=== PATIENT | female | born 1940 | race Caucasian/White ===

== ENCOUNTER 2021-10-19 12:37 | Day surgery (SDC) | payer MEDICARE, SELFPAY ==
--- NOTE | 2021-10-19 07:24 | W.ANESPRE ---
General Info Date of Service Date Performed: 10/19/21 Height: 5 ft 5 in Weight: 72.8 kg Body Mass Index (BMI): 26.6 Surgical Procedure: Operation Date: 10/19/21 16:40 Proposed Procedure Side Surgeon p Cataract Extraction with IOL Implant Right Colby Kumar MD Meds Allergies and Home Medications Allergies Allergy/AdvReac Type Severity Reaction Status Date / Time iodine Allergy Verified 10/19/21 13:10 peanut Allergy Skin Rash Verified 10/19/21 13:10 peanut oil Allergy Skin Rash Verified 10/19/21 13:10 codeine AdvReac Verified 10/19/21 13:10 simvastatin [From Zocor] AdvReac Verified 10/19/21 13:10 Home Medication Medication Instructions Recorded aspirin 81 mg tablet,delayed 81 mg PO DAILY 10/01/21 release budesonide-formoterol HFA 160 2 puff INHALATION DAILY 10/01/21 mcg-4.5 mcg/actuation aerosol inhaler (Symbicort) fluticasone propionate 50 2 spray INTRANASAL DAILY 10/01/21 mcg/actuation nasal spray,suspension gabapentin 300 mg capsule 300 mg PO TID 10/01/21 lorazepam 1 mg tablet 1 mg PO BID PRN 10/01/21 naproxen 220 mg-diphenhydramine 25 1 tab PO HS PRN 10/01/21 mg tablet (Aleve PM) risperidone 1 mg tablet 1 mg PO HS 10/01/21 vitamin B12 0.5 mg-folic acid 1 mg tab PO 10/01/21 tablet Current Visit Medications: Current Medications Generic Name Dose Route Start Last Admin Trade Name Freq PRN Reason Stop Dose Admin Acetaminophen 1,000 mg 10/19/21 06:00 Acetaminophen 500 Mg Tab PO Q4H PRN PRN Miscellaneous Medication 0 ml 10/19/21 06:00 Prednisolone 1%, Moxifloxacin 0.5%, Nepafenac 0.1% 5ml Btl OD DIRECTED [facility] Miscellaneous Medication 0 ml 10/19/21 06:00 Tropicam./Phenyleph. (1/2.5%) 5 Ml Btl OD DIRECTED [facility] Tetracaine HCl 0 ml 10/19/21 06:00 Tetracaine 0.5% 4 Ml Btl OD DIRECTED [facility] Medical History Medical History Bone necrosis Constipation HLD (hyperlipidemia) Malignant neoplasm of uterus Mixed hyperlipidemia Neuropathy Osteoarthritis Pain of left hip joint Postmenopausal bleeding Schizophrenia Surgical History Surgical History (Updated 10/19/21 @ 13:03 by Chris Jones) History of hip replacement Hx of dilation and curettage Hx of hysterectomy Vital Signs and Lab Results Vital Signs Most Recent Vital Signs in EMR: Temp Pulse Resp BP Pulse Ox 37.2 C 92 H 16 136/71 96 10/19/21 12:48 10/19/21 12:48 10/19/21 12:48 10/19/21 12:48 10/19/21 12:48 Lab Results Blood Type / Crossmatch: No Data to Display Complete Blood Count: No Data to Display Complete Metabolic Panel: No Data to Display Liver Function Panel: No Data to Display Coagulation Panel: No Data to Display Cardiac Panel: No Data to Display Arterial Blood Gas: No Data to Display Venous Blood Gas: No Data to Display Pancreas Panel: No Data to Display Thyroid Panel: No Data to Display Infectious Disease: No Data to Display Blood Cultures: No Data to Display Toxicology Panel: No Data to Display Anesthesia Assessment and Plan Anesthesia History Personal History: No History of Anesthesia Complications Family History: No Family History of Anesthesia Complications Exercise Tolerance Exercise Tolerance: Metabolic Equivalents>4 Pertinent Negatives Pertinent Negatives: No Symptoms of GERD, No Major Pulmonary Symptoms or Complaints, No History of CVA/TIA and Other (2 previous heart attacks, but no symptoms) Cardiac & Pulmonary Exam Cardiac Exam: Normal S1/S2 Heart Sounds Pulmonary Exam: Clear Bilateral Breath Sounds Implantable Cardiac Device Does patient have a Pacemaker or an ICD?: No Airway Exam Known Difficult Airway: No Mallampati Class: 3 Mouth Opening: Normal (> 3cm) Thyromental Distance: Greater than 3 cm Neck Range of Motion: Full ROM Neck Circumference: Normal Teeth Condition: Normal Dentition and Other (Missing front left molar) ASA Classification ASA Score: ASA 3 Emergency Case?: No NPO Status NPO Status: NPO Clears >2 hours, Solids >8 hours Anesthesia Plan Resuscitation Status: Full Code Anesthesia Technique: MAC Anesthesia Airway Planned: Natural Airway Monitors Used: Standard Monitors Preoperative Comments:: 81 yo female for cataract removal. Sig PMHx: neuropathy, schizophrenia, asthma.
[2021-10-19 12:48] VITALS: BP 136/71; PULSE 92; RESP 16; TEMP 37.2; O2SAT 96
[2021-10-19] MEDS: Tropicam./Phenyleph. (1/2.5%) 5 ML BTL OD ×3 (13:23→13:33)
[2021-10-19 13:33] VITALS: BMI 26.6
[2021-10-19] MEDS: Tetracaine 0.5% 4 ML BTL OD (13:59)
[2021-10-19] MEDS: Duovisc Viscoelastic System EACH 1 EACH ×2 (14:00→14:18)
[2021-10-19] MEDS: Balanced Salt Soln.-PLUS 500 ML BAG (14:00)
[2021-10-19] MEDS: Lidocaine 2% Jelly 6 ML SYR (14:03)
[2021-10-19] MEDS: Povidone-Iodine Ophth 30 ML BTL (14:05)
[2021-10-19] MEDS: Trypan Blue 0.06% 0.5 ML SYR (14:07)
[2021-10-19 14:48] VITALS: BP 113/74; PULSE 74; RESP 16; TEMP 36.9; O2SAT 96
--- NOTE | 2021-10-19 14:53 | W.ANESPOSTOP ---
Postoperative Evaluation Date, Time and Location Date Performed: 10/19/21 Time Performed: 14:53 Patient Location: Day Surgery Unit Vital Signs Most Recent Imported Vital Signs: Most Recent Vital Signs Temp Pulse Resp BP Pulse Ox 36.9 C 74 16 113/74 96 10/19/21 14:48 10/19/21 14:48 10/19/21 14:48 10/19/21 14:48 10/19/21 14:48 Pain Score Most Recent Pain Score: Most Recent Pain Score Pain Level 0 10/19/21 14:48 Assessment Mental Status: Awake (Alert & Oriented to Patient Baseline) Airway and Respiratory Function: Patent airway with normal (patient baseline) respiratory exam Cardiovascular Function: Hemodynamically Stable Hydration Status: Adequately Hydrated Nausea & Vomiting: No Nausea or Vomiting Pain: Pt. Denies Any Pain Peripheral Nerve Block: Patient did not receive a nerve block
--- NOTE | 2021-10-19 15:00 | W.PM.DSUDISC ---
Discharge Plan Disposition Patient Disposition: HOME Condition: Good Discharge Details Attending Provider: Colby Kumar Primary Care Provider: Bharat Kwok [place] Meds and New Rx's Prescriptions: No Action aspirin [Aspir-81] 81 mg Tablet,Delayed Release (Dr/Ec) 81 mg PO DAILY 0RF gabapentin 300 mg Capsule 300 mg PO TID 0RF lorazepam 1 mg Tablet 1 mg PO BID PRN0RF fluticasone propionate 50 mcg/actuation [place],Suspension 2 spray INTRANASAL DAILY 0RF risperidone 1 mg Tablet 1 mg PO HS 0RF vitamin C70-qfnnq acid 0.5-1 mg Tablet 1 tab PO UNKNOWN 0RF budesonide-formoterol [Symbicort] 160-4.5 mcg/actuation Hfa Aerosol Inhaler 2 puff INHALATION DAILY 0RF Aleve PM 220-25 mg Tablet 1 tab PO HS PRN0RF Discharge Instructions Stand Alone Forms: Post-op Topical Cataract, Matilde Ganey (DSU) Discharge Orders Discharge Orders: Discharge Order (Routine); Ordered 10/19/21 Ordered By: Colby Kumar DS: Diagnosis Discharge Diagnosis (1) Cortical cataract of left eye: Status: Resolved (2) Nuclear sclerotic cataract of right eye: Status: Resolved
--- NOTE | 2021-10-19 15:02 | W.PM.OP ---
Date of service: 10/19/21 Time of Service: 15:02 Operative Note Operative Note DATE OF PROCEDURE: 10/19/21 PRE-OP DIAGNOSIS: Dense, mature cataract, right eye POST-OP DIAGNOSIS: same PROCEDURE: Cataract extraction using phacoemulsification with intraocular lens implantation, right eye, using capsular staining with Vision Blue SURGEON: Colby Kumar ANESTHESIA TYPE: Local By Surgeon and MAC Refer to Anesthesia Record PATHOLOGY: none sent COMPLICATIONS: None Patient was transported to: same day Patient's condition: stable Implants: Prashant and Prashant / [employer] Tecnis [id number] Indications: Progressive visual loss due to cataract, right eye Procedure Description: CATARACT SURGERY OPERATIVE REPORT PREOPERATIVE DIAGNOSIS: 1. Dense, mature cataract, right eye 2. Poor red reflex secondary to #1 POSTOPERATIVE DIAGNOSIS: Same OPERATION: 1. Cataract extraction using phacoemulsification with posterior chamber intraocular lens implant, right eye. 2. Capsular staining with Vision Blue IOL: IOL [employer]/Model: Prashant & Prashant / VERNA Tecnis [id number] IOL Power: + 30.5 diopters IOL Serial Number: [id number] Optic Diameter: 6.0mm Haptic/Overall Diameter: 13.0mm PHACO INFO: Pawel Pepperdataurion Vision System with OZil and Active Fluidics Cumulative Dispersed Energy (CDE): 49.41 seconds SURGEON: Colby Kumar MD, JAGJIT ANESTHESIA: Monitored Anesthesia Care (MAC), with local sub-tenon's anesthetic infiltration COMPLICATIONS: None SPECIMENS: None INDICATIONS FOR PROCEDURE: The patient is an 81-year-old lady with history of a dense, mature cataract of the right eye with hand motions vision and absent red reflex. She also has a history of high hyperopia with short axial length. The option of cataract surgery was offered to the patient and she wished to proceed. PROCEDURE: The correct surgical eye was identified and marked as the right eye and the pupil was dilated in the preoperative area using mydriatics and cycloplegics. The dilated pupil size was 6.0 mm. Oral sedation was administered in the form of an nicole halft of an Imprimis MKO Melt (midazolam 3mg/ketamine 25mg/ondansetron 2mg). The patient was brought to the operating room where cardiopulmonary monitoring was instituted and surgical time-out was performed, confirming the correct operative eye and IOL power. Topical anesthesia was administered and ophthalmic povidone-iodine 5% was instilled into the conjunctival fornices. Lidocaine gel was applied to the cornea and the bro-ocular area was prepped with Betadine 10% solution and draped in the usual sterile fashion for intraocular surgery, including an aperture drape. A Tegaderm transparent film dressing was cut in half and used to cover the lashes and lid margins. Care was taken to sequester the lashes and lid margins under the Tegaderm dressing. A lid speculum was placed between the lids of the operative eye and the Pawel LuxOR Revalia operating microscope was maneuvered into position. Anshu scissors were then used to make a conjunctival buttonhole approximately 6mm posterior to the limbus in the inferonasal quadrant. Blunt dissection was carried out to expose bare sclera, and a blunt-tipped sub-tenon?s anesthesia cannula was introduced and passed posteriorly along the globe where non-preserved plain lidocaine was injected into posterior sub-Tenon?s space. A sideport knife was used to make a paracentesis port inferotemporally. Intraocular phenylephrine/lidocaine was injected into the anterior chamber. Air was injected into the anterior chamber, followed by Vision Blue, which was painted over the anterior capsule and then irrigated out with BSS. The anterior chamber was filled with viscoelastic. A 2.4mm keratome knife was used to create a half-thickness groove at the limbus and then to construct a three-plane near-clear corneal tunnel extending 2.0mm into clear cornea superiortemporally. A flap was raised on the anterior capsule, after which a significant amount of liquefied cortex was released into the anterior chamber. The irrigation/aspiration handpiece had to be used to clear the liquefied cortex. Taking care to maintain the anterior chamber, additional Viscoat was injected into the anterior chamber and the cystotome was used to propagate the capsulorrhexis and additional clock hour, after which a significant amount of liquefied cortex impaired visualization. Again, irrigation/aspiration had to be used to clear the view, and the anterior chamber refilled with Viscoat. Capsulorrhexis forceps were then used to quickly complete an approximately 3 mm capsulorhexis. The irrigation/aspiration was then used to remove all liquefied cortex from posterior to the anterior capsule. The nucleus was also depressed to remove all liquefied cortex from posterior to the dense mature nucleus. The anterior chamber was then again refilled with Viscoat, and a cystotome was used to make a jimmy in the capsular edge, and capsulorhexis forceps were used to complete a continuous curvilinear capsulorhexis of 5.0 mm. Balanced salt solution was then used to perform cortical cleaving hydrodissection and nuclear hydrodelineation until the lens could be freely rotated within the capsular bag. The lens nucleus was then disassembled and removed within the capsular bag and iris plane using phacoemulsification. Nuclear splitters were used to aid in cracking the nucleus into 2 heminuclei. There was a significant fibrotic posterior plate which inhibited complete cracking. Viscoat was used to protect the corneal endothelium intermittently during nucleus removal. A combination of vertical and horizontal chopping was used finally remove all of the dense nucleus. Using the I/A handpiece, the underside of the anterior capsule was vacuumed. There was essentially no residual cortex. The posterior capsule was carefully polished to remove as much residual lens epithelial cells as safely possible. The capsular bag was then inflated and the anterior chamber deepened with viscoelastic. The lens implant described above was inserted into the capsular bag using the VERNA [place] Injector. A Kuglen hook was used to dial the IOL into position. Residual viscoelastic was then removed first from posterior to the IOL, then from the anterior chamber using the I/A handpiece. The lens implant was noted to center nicely within the capsular bag. The incisions were stromally hydrated, and the anterior chamber was reformed using BSS. Then 0.5cc of moxifloxacin 1.0mg/ml were injected into the capsular bag and anterior chamber. The incisions were checked with a Weck spear and found to be secure. Several drops of ophthalmic povidone-iodine 5% were then applied to the eye followed by two drops of Imprimis combination prednisolone/moxifloxacin/nepafenac solution. The drapes were removed and a clear plastic protective eye shield was placed over the eye. The patient was then returned to Same Day Surgery in stable condition.
[2021-10-19 15:20] VITALS: BP 124/66; PULSE 82; RESP 16; TEMP 37.1; O2SAT 95
== END 2021-10-19 15:25 | disposition home or self-care (01) ==
PROVIDERS: PCP Neuromusculoskeletal Medicine & OMM; Visit Provider Ophthalmology
PROC: (CPT 66984; principal; 2021-10-19 16:30)
DX: H25.11 Age-related nuclear cataract, right eye (principal); K59.00 Constipation, unspecified; F20.9 Schizophrenia, unspecified; E78.5 Hyperlipidemia, unspecified
CPT/HCPCS: 66984; V2632

== ENCOUNTER 2021-10-30 10:23 | Day surgery (SDC) | payer MEDICARE, SELFPAY ==
[2021-10-30 11:27] VITALS: BP 126/65; PULSE 76; RESP 16; TEMP 36.9; O2SAT 95
[2021-10-30] MEDS: Tropicam./Phenyleph. (1/2.5%) 5 ML BTL OS ×3 (11:40→11:50)
--- NOTE | 2021-10-30 11:43 | W.ANESPRE ---
General Info Date of Service Date Performed: 10/30/21 Height: 5 ft 5 in Weight: 73 kg Body Mass Index (BMI): 26.7 Surgical Procedure: Operation Date: 10/30/21 13:25 Proposed Procedure Side Surgeon p Cataract Extraction with IOL Implant Left Colby Kumar MD Meds Allergies and Home Medications Allergies Allergy/AdvReac Type Severity Reaction Status Date / Time iodine Allergy Verified 10/30/21 11:23 peanut Allergy Skin Rash Verified 10/30/21 11:23 peanut oil Allergy Skin Rash Verified 10/30/21 11:23 codeine AdvReac Verified 10/30/21 11:23 simvastatin [From Zocor] AdvReac Verified 10/30/21 11:23 Home Medication Medication Instructions Recorded aspirin 81 mg tablet,delayed 81 mg PO DAILY 10/01/21 release gabapentin 300 mg capsule 300 mg PO TID 10/01/21 lorazepam 1 mg tablet 1 mg PO BID PRN 10/01/21 naproxen 220 mg-diphenhydramine 25 1 tab PO HS PRN 10/01/21 mg tablet (Aleve PM) risperidone 1 mg tablet 1 mg PO HS 10/01/21 vitamin B12 0.5 mg-folic acid 1 mg 1 tab PO UNKNOWN 10/01/21 tablet Current Visit Medications: Current Medications Generic Name Dose Route Start Last Admin Trade Name Freq PRN Reason Stop Dose Admin Acetaminophen 1,000 mg 10/30/21 06:00 Acetaminophen 500 Mg Tab PO Q4H PRN PRN Miscellaneous Medication 0 ml 10/30/21 06:00 Prednisolone 1%, Moxifloxacin 0.5%, Nepafenac 0.1% 5ml Btl OS DIRECTED [facility] Miscellaneous Medication 0 ml 10/30/21 06:00 10/30/21 11:40 Tropicam./Phenyleph. (1/2.5%) 5 Ml Btl OS 1 drp DIRECTED [facility] Administration Tetracaine HCl 0 ml 10/30/21 06:00 Tetracaine 0.5% 4 Ml Btl OS DIRECTED [facility] PFSH Active Problems Active Problems: Problem Status Onset Code Nuclear sclerotic cataract of left eye H25.12 Nuclear sclerotic cataract of right eye H25.11 Cortical cataract of left eye H26.9 Medical History Medical History Bone necrosis Constipation HLD (hyperlipidemia) Malignant neoplasm of uterus Mixed hyperlipidemia Neuropathy Osteoarthritis Pain of left hip joint Postmenopausal bleeding Schizophrenia Surgical History Surgical History History of hip replacement Hx of dilation and curettage Hx of hysterectomy Tobacco Smoking/Tobacco Use Status: Never Alcohol Alcohol Intake: never Substance Use Substance use: Never Substance use type: does not use Vital Signs and Lab Results Vital Signs Most Recent Vital Signs in EMR: Most Recent Vital Signs Temp Pulse Resp BP Pulse Ox 36.9 C 76 16 126/65 95 10/30/21 11:27 10/30/21 11:27 10/30/21 11:27 10/30/21 11:27 10/30/21 11:27 Lab Results Blood Type / Crossmatch: No Data to Display Complete Blood Count: No Data to Display Complete Metabolic Panel: No Data to Display Liver Function Panel: No Data to Display Coagulation Panel: No Data to Display Cardiac Panel: No Data to Display Arterial Blood Gas: No Data to Display Venous Blood Gas: No Data to Display Pancreas Panel: No Data to Display Thyroid Panel: No Data to Display Infectious Disease: No Data to Display Blood Cultures: No Data to Display Toxicology Panel: No Data to Display Anesthesia Assessment and Plan Anesthesia History Personal History: No History of Anesthesia Complications Family History: No Family History of Anesthesia Complications Exercise Tolerance Exercise Tolerance: Metabolic Equivalents>4 Pertinent Negatives Pertinent Negatives: No Symptoms of GERD, No Major Cardiovascular Symptoms or Complaints, No Major Pulmonary Symptoms or Complaints and No History of CVA/TIA Cardiac & Pulmonary Exam Cardiac Exam: Normal S1/S2 Heart Sounds Pulmonary Exam: Clear Bilateral Breath Sounds Implantable Cardiac Device Does patient have a Pacemaker or an ICD?: No Airway Exam Known Difficult Airway: No Mallampati Class: 3 Mouth Opening: Normal (> 3cm) Thyromental Distance: Greater than 3 cm Neck Range of Motion: Full ROM Neck Circumference: Normal Teeth Condition: Normal Dentition and Other (Missing front left molar) ASA Classification ASA Score: ASA 3 Emergency Case?: No NPO Status NPO Status: NPO Clears >2 hours, Solids >8 hours Anesthesia Plan Resuscitation Status: Full Code Anesthesia Technique: MAC Anesthesia Airway Planned: Natural Airway Monitors Used: Standard Monitors Preoperative Comments:: (2 previous heart attacks, but no symptoms)
[2021-10-30 11:57] VITALS: BMI 26.7
[2021-10-30] MEDS: Tetracaine 0.5% 4 ML BTL OS (12:51)
[2021-10-30] MEDS: Balanced Salt Soln.-PLUS 500 ML BAG (12:52)
[2021-10-30] MEDS: Duovisc Viscoelastic System EACH 1 EACH (12:53)
[2021-10-30] MEDS: Lidocaine 2% Jelly 6 ML SYR (12:54)
[2021-10-30] MEDS: Povidone-Iodine Ophth 30 ML BTL (12:54)
[2021-10-30 12:57] VITALS: BP 119/57; PULSE 71; RESP 16; TEMP 36.1; O2SAT 95
--- NOTE | 2021-10-30 13:02 | W.PM.DSUDISC ---
Discharge Plan Disposition Patient Disposition: HOME Condition: Good Discharge Details Attending Provider: Colby Kumar Primary Care Provider: Bharat Kwok [place] Meds and New Rx's Prescriptions: No Action aspirin [Aspir-81] 81 mg Tablet,Delayed Release (Dr/Ec) 81 mg PO DAILY 0RF gabapentin 300 mg Capsule 300 mg PO TID 0RF lorazepam 1 mg Tablet 1 mg PO BID PRN0RF risperidone 1 mg Tablet 1 mg PO HS 0RF vitamin Q62-iuhkv acid 0.5-1 mg Tablet 1 tab PO UNKNOWN 0RF Aleve PM 220-25 mg Tablet 1 tab PO HS PRN0RF Discharge Instructions Stand Alone Forms: Post-op Topical Cataract, Matilde Lizarraga (DSU) Discharge Orders Discharge Orders: Discharge Order (Routine); Ordered 10/30/21 Ordered By: Colby Kumar DS: Diagnosis Discharge Diagnosis (1) Nuclear sclerotic cataract of left eye: Status: Resolved (2) Cortical cataract of left eye: Start date: 10/30/21 Status: Resolved
--- NOTE | 2021-10-30 13:03 | ROE_ITS ---
Date of service: 10/30/21 Time of Service: 13:03 Operative Note Operative Note DATE OF PROCEDURE: 10/30/21 PRE-OP DIAGNOSIS: Nuclear/cortical cataract, left eye POST-OP DIAGNOSIS: same PROCEDURE: Cataract extraction using phacoemulsification with intraocular lens implant, left eye SURGEON: Colby Kumar ANESTHESIA TYPE: Local By Surgeon and MAC Refer to Anesthesia Record PATHOLOGY: none sent COMPLICATIONS: None Patient was transported to: same day Patient's condition: stable Implants: Prashant and Prashant / [employer] Tecnis [id number] Indications: Progressive decreased vision due to cataract, left eye Procedure Description: CATARACT SURGERY OPERATIVE REPORT PREOPERATIVE DIAGNOSIS: 1. Nuclear/cortical cataract, left eye POSTOPERATIVE DIAGNOSIS: Same OPERATION: 1. Cataract extraction using phacoemulsification with posterior chamber intraocular lens implant, left eye. IOL: IOL Elevator Constructor Helper/Model: Prashant & Prashant / VERNA Tecnis [id number] IOL Power: + 30.0 diopters IOL Serial Number: [id number] Optic Diameter: 6.0 mm Haptic/Overall Diameter: 13.0 mm PHACO INFO: Paw[employer]oon Vision System with OZil and Active Fluidics Cumulative Dispersed Energy (CDE): 9.07 seconds SURGEON: Colby Kumar MD, JAGJIT ANESTHESIA: Monitored A [facility] (MAC), with local sub-tenon's anesthetic infiltration COMPLICATIONS: None SPECIMENS: None INDICATIONS FOR PROCEDURE: The patient is an 81-year-old lady with history of high hyperopia who has developed symptomatic bilateral cataracts. She has already undergone cataract surgery in the right eye and is doing well postoperatively. She now presents for cataract surgery in the left eye. PROCEDURE: The correct surgical eye was identified and marked as the left eye and the pupil was dilated in the preoperative area using mydriatics and cycloplegics. The dilated pupil size was 6.5 mm. Oral sedation was administered in the form of one half of an Imprimis MKO Melt (midazolam 3mg/ketamine 25mg/ondansetron 2mg). The patient was brought to the operating room where cardiopulmonary monitoring was instituted and surgical time-out was performed, confirming the correct operative eye and IOL power. Topical anesthesia was administered and ophthalmic povidone-iodine 5% was instilled into the conjunctival fornices. Lidocaine gel was applied to the cornea and the bro-ocular area was prepped with Betadine 10% solution and draped in the usual sterile fashion for intraocular surgery, including an aperture drape. A Tegaderm transparent film dressing was cut in half and used to cover the lashes and lid margins. Care was taken to sequester the lashes and lid margins under the Tegaderm dressing. A lid speculum was placed between the lids of the operative eye and the Pawel LuxOR Revalia operating microscope was maneuvered into position. Anshu scissors were then used to make a conjunctival buttonhole approximately 6mm posterior to the limbus in the inferonasal quadrant. Blunt dissection was carried out to expose bare sclera, and a blunt-tipped sub-tenon?s anesthesia cannula was introduced and passed posteriorly along the globe where non- preserved plain lidocaine was injected into posterior sub-Tenon?s space. A sideport knife was used to make a paracentesis port superiorly/superiortemporally. Intraocular phenylephrine/lidocaine was injected int the anterior chamber.. The anterior chamber was filled with viscoelastic. A 2.4mm keratome knife was used to create a half-thickness groove at the limbus and then to construct a three-plane near-clear corneal tunnel extending 2.0mm into clear cornea at the 3:00 position. A flap was raised on the anterior capsule and capsulorhexis forceps were used to complete a continuous curvilinear capsulorhexis of 5.0 mm. Balanced salt solution was then used to perform cortical cleaving hydrodissection and nuclear hydrodelineation until the lens could be freely rotated within the capsular bag. The lens nucleus was then disassembled and removed within the capsular bag and iris plane using phacoemulsification. Residual cortical material was removed using the 45-degree angled silicone I/A tip with 0.3mm port. The posterior capsule was carefully polished to remove as much residual lens epithelial cells as safely possible. The capsular bag was then inflated and the anterior chamber deepened with viscoelastic. The lens implant described above was inserted into the capsular bag using the VERNA [place] Injector. A Kuglen hook was used to dial the IOL into position. Residual viscoelastic was then removed first from posterior to the IOL, then from the anterior chamber using the I/A handpiece. The lens implant was noted to center nicely within the capsular bag. The incisions were stromally hydrated, and the anterior chamber was reformed using BSS. Then 0.5cc of moxifloxacin 1.0mg/ml were injected into the capsular bag and anterior chamber. The incisions were checked with a Weck spear and found to be secure. Several drops of ophthalmic povidone-iodine 5% were then applied to the eye followed by two drops of Imprimis combination prednisolone/moxifloxacin/nepafenac solution. The drapes were removed and a clear plastic protective eye shield was placed ov er the eye. The patient was then returned to Same Day Surgery in stable condition.
[2021-10-30 13:27] VITALS: BP 122/74; PULSE 78; RESP 16; TEMP 37.1; O2SAT 97
--- NOTE | 2021-10-30 14:21 | W.ANESPOSTOP ---
Postoperative Evaluation Date, Time and Location Date Performed: 10/30/21 Time Performed: 13:27 Patient Location: Day Surgery Unit Vital Signs Most Recent Imported Vital Signs: Most Recent Vital Signs Temp Pulse Resp BP Pulse Ox 37.1 C 78 16 122/74 97 10/30/21 13:27 10/30/21 13:27 10/30/21 13:27 10/30/21 13:27 10/30/21 13:27 Pain Score Most Recent Pain Score: Most Recent Pain Score Pain Level 0 10/30/21 13:27 Assessment Mental Status: Awake (Alert & Oriented to Patient Baseline) Airway and Respiratory Function: Patent airway with normal (patient baseline) respiratory exam Cardiovascular Function: Hemodynamically Stable Hydration Status: Adequately Hydrated Nausea & Vomiting: No Nausea or Vomiting Pain: Pt. Denies Any Pain Peripheral Nerve Block: Other (Local by Dr. Kumar)
== END 2021-10-30 13:37 | disposition home or self-care (01) ==
PROVIDERS: PCP Neuromusculoskeletal Medicine & OMM; Visit Provider Ophthalmology
PROC: (CPT 66984; principal; 2021-10-30 13:15)
DX: H25.12 Age-related nuclear cataract, left eye (principal); E78.2 Mixed hyperlipidemia
CPT/HCPCS: 66984; V2632